=== PATIENT | male | born 1975 | race Two or more races ===

== ENCOUNTER 2023-08-30 08:05 | Day surgery (SDC) | payer OTHER ==
[2023-08-22 12:41] VITALS: BMI 28.3
[2023-08-30 09:40] VITALS: TEMP 97.4
[2023-08-30 10:23] VITALS: BP 118/82; PULSE 86; RESP 16
== END 2023-08-30 10:26 | disposition home or self-care (01) ==
LOC: FASU-ENDO 08:05
PROVIDERS: ATTEND Internal Medicine Gastroenterology
PROC: 0DJD8ZZ Inspection of Lower Intestinal Tract, Via Natural or Artificial Opening Endoscopic (ICD-10-PCS; principal; 2023-08-30 09:17)
DX: Z12.11 Encounter for screening for malignant neoplasm of colon (principal)